=== PATIENT | female | born 1955 | race Two or more races ===

== ENCOUNTER 2021-10-24 15:44 | Inpatient (IN) | payer MEDICARE, MEDICAID ==
[~2021-10-24] VITALS: Ht 165.1 cm; Wt 56.2 kg
[2021-10-24] MEDS ORDERED: ONDANSETRON HCL 4 MG/2 ML VIAL IV ONE (16:00)
[2021-10-24] MEDS ORDERED: PANTOPRAZOLE 40 MG/10 ML VIAL INJ IV ONE (16:00)
[2021-10-24] MEDS ORDERED: SODIUM CHLORIDE 0.9% 500 ML IVB ONE (16:00)
[2021-10-24] MEDS ORDERED: MORPHINE SULFATE 4 MG/ML SYR/VIAL IV ONE (16:00)
[2021-10-24 16:51] LABS: Hemoglobin 10.8 g/dL (12.2-16.2)
[2021-10-24 16:54] LABS: Hematocrit 35.6 % (36.0-46.0); Mean Corpuscular Hgb Conc. 30.3 g/dL (32.0-36.0); Mean Corpuscular Volume 69.4 fL (80.0-100.0); Red Blood Cells 5.14 10^6/uL (4.0-5.20); White Blood Cell 12.8 10^3/uL (4.4-10.8)
[2021-10-24 16:58] LABS: Red Cell Distribution Width 25.3 % (11.8-14.3)
[2021-10-24 17:00] LABS: Basophils % (manual) 0 (0.0-2.0); Blast Cells 0; Eosinophils % (manual) 0 (0-7); Metamyelocytes % 0; Myelocytes % 0; Promyelocytes % 0; Reactive Lymphocytes 0
[2021-10-24 17:08] LABS: Albumin 2.8 g/dL (3.4-5.0); BUN/Creatinine Ratio 15.2; Calcium 9.1 mg/dL (8.5-10.1); Potassium 4.1 mmol/L (3.5-5.1)
[2021-10-24 17:11] LABS: Bilirubin, Total 0.6 mg/dL (0.2-1.0); Total Protein 7.5 g/dL (6.4-8.2)
[2021-10-24 17:47] LABS: Band Neutrophils % (manual) 15; Lymphocytes % (manual) 5 (10.0-50.0); Monocytes % (manual) 4 (0-12)
[2021-10-24] MEDS ORDERED: DEXTROSE (50%) 50ML SYRG IV PRN (20:45)
[2021-10-24] MEDS ORDERED: ACETAMINOPHEN 325 MG TAB PO PRN (20:45)
[2021-10-24] MEDS ORDERED: ALBUTEROL SULF 2.5 MG/0.5ML(0.5%) NEB SOLN NEB PRN (20:45)
[2021-10-24] MEDS ORDERED: NITROGLYCERIN 0.4 MG SL TAB SL PRN (20:45)
[2021-10-24] MEDS ORDERED: DOCUSATE SOD 100 MG CAP PO PRN (20:45)
[2021-10-24] MEDS ORDERED: MORPHINE SULFATE INJ 2 MG/ml SYRG IV PRN (20:45)
[2021-10-24] MEDS ORDERED: HYDROcodone-ACET 5/325MG TAB PO ONE (21:15)
[2021-10-24 21:21] LABS: Urine Bacteria FEW /hpf (None Seen); Urine Blood TRACE /uL (Negative); Urine Specific Gravity 1.018 (1.001-1.035); Urine WBC 19 /hpf (0 - 5)
[2021-10-24 21:32] VITALS: BP 144/90
[2021-10-24] MEDS: ACCU-CHEK COMFORT CURVE STRIP VI SCH (22:00)
[2021-10-24] MEDS: InsuLIN REG 1unit/0.01ml Soln (100units/ml) SC SCH (22:00)
[2021-10-24] MEDS: ATORVASTATIN 20 MG TAB PO SCH (22:45)
[2021-10-25 00:01] LABS: INR 1.13 (0.9-1.15); Partial Thromboplastin Time 36.7 sec (24.6-33.4)
[2021-10-25 04:54] LABS: Basophils # (auto) 0 10 ^3/uL (0-0.2); Eosinophils # (auto) 0 10 ^3/uL (0-0.8); Lymphocytes # (auto) 0.8 10 ^3/uL (0.4-5.4); Mean Corpuscular Hemoglobin 21.7 pg (28.0-32.0)
[2021-10-25 04:57] LABS: Basophils % (auto) 0.1 % (0.0-2.0); Eosinophils % (auto) 0.1 % (0.0-7.0); Hematocrit 29.3 % (36.0-46.0); Hemoglobin 9.1 g/dL (12.2-16.2); Lymphocytes % (auto) 6.9 % (10.0-50.0); Mean Corpuscular Hgb Conc. 31.1 g/dL (32.0-36.0); Mean Corpuscular Volume 69.8 fL (80.0-100.0); Monocytes # (auto) 0.7 10 ^3/uL (0-1.3); Monocytes % (auto) 5.7 % (0.0-12.0); Neutrophils % (auto) 87.2 % (37.0-80.0); Red Blood Cells 4.19 10^6/uL (4.0-5.20); White Blood Cell 11.5 10^3/uL (4.4-10.8)
[2021-10-25 05:16] LABS: Albumin 2.5 g/dL (3.4-5.0); BUN/Creatinine Ratio 15.6; Calcium 8.6 mg/dL (8.5-10.1); Potassium 4.2 mmol/L (3.5-5.1)
[2021-10-25 05:18] LABS: Bilirubin, Total 0.5 mg/dL (0.2-1.0); Total Protein 6.8 g/dL (6.4-8.2)
[2021-10-25 05:22] LABS: Red Cell Distribution Width 25.3 % (11.8-14.3)
[2021-10-25] MEDS ORDERED: KETOROLAC TROMETH 30 MG/ML 1ML VIAL IV ONE (05:45)
[2021-10-25] MEDS ORDERED: HYDROcodone-ACET 5/325MG TAB PO PRN ×2 (05:45→06:00)
[2021-10-25] MEDS ORDERED: MORPHINE SULFATE INJ 2 MG/ml SYRG IV PRN (05:45)
[2021-10-25] MEDS ORDERED: ACETAMINOPHEN 325 MG TAB PO PRN (06:00)
[2021-10-25] MEDS: InsuLIN REG 1unit/0.01ml Soln (100units/ml) SC SCH ×4 (06:36→21:42)
[2021-10-25] MEDS: ACCU-CHEK COMFORT CURVE STRIP VI SCH ×4 (06:36→21:30)
[2021-10-25 09:06] VITALS: BP 120/86
[2021-10-25] MEDS ORDERED: LIDOCAINE 2%HCL (LOCAL ANESTH.) INJ 10ml MDV ONE (09:56)
[2021-10-25] MEDS ORDERED: RIVAROXABAN 10 MG TAB PO SCH (10:00)
[2021-10-25] MEDS ORDERED: amLODIPine BESYLATE 5 MG TAB PO SCH (10:00)
[2021-10-25] MEDS: MORPHINE SULFATE INJ 2 MG/ml SYRG IV PRN ×2 (11:29→21:37)
[2021-10-25] MEDS ORDERED: cefTRIAXone 1GM/50ML D5W 50 ML IV ONE (11:45)
[2021-10-25] MEDS ORDERED: PANTOPRAZOLE 40 MG/10 ML VIAL INJ IV ONE (11:45)
[2021-10-25] MEDS ORDERED: ENOXAPARIN SOD 150 MG/1 ML SYRINGE SC ONE (11:45)
[2021-10-25 13:00] VITALS: BP 132/87
[2021-10-25] MEDS: ENOXAPARIN SOD 150 MG/1 ML SYRINGE SC SCH (15:12)
[2021-10-25 17:00] VITALS: BP 130/73
[2021-10-25 20:00] VITALS: BP 105/78
[2021-10-25] MEDS: ATORVASTATIN 20 MG TAB PO SCH (21:30)
[2021-10-25 22:00] VITALS: BP 105/78
[2021-10-26] MEDS: ENOXAPARIN SOD 150 MG/1 ML SYRINGE SC SCH (01:39)
[2021-10-26] MEDS: HYDROcodone-ACET 5/325MG TAB PO PRN ×3 (03:57→20:07)
[2021-10-26 05:00] VITALS: BP 95/74
[2021-10-26 05:41] LABS: Hematocrit 30.2 % (36.0-46.0); Mean Corpuscular Hemoglobin 20.6 pg (28.0-32.0); Mean Corpuscular Hgb Conc. 29.7 g/dL (32.0-36.0); Mean Corpuscular Volume 69.3 fL (80.0-100.0); Red Blood Cells 4.36 10^6/uL (4.0-5.20); White Blood Cell 13.5 10^3/uL (4.4-10.8)
[2021-10-26 05:46] LABS: Calcium 8.6 mg/dL (8.5-10.1); Potassium 3.9 mmol/L (3.5-5.1)
[2021-10-26 05:49] LABS: BUN/Creatinine Ratio 19.3
[2021-10-26 05:56] LABS: Red Cell Distribution Width 25.4 % (11.8-14.3)
[2021-10-26 05:57] LABS: Basophils % (manual) 0 (0.0-2.0); Blast Cells 0; Metamyelocytes % 0; Myelocytes % 0; Promyelocytes % 0; Reactive Lymphocytes 0
[2021-10-26] MEDS: InsuLIN REG 1unit/0.01ml Soln (100units/ml) SC SCH ×4 (06:29→21:33)
[2021-10-26] MEDS: ACCU-CHEK COMFORT CURVE STRIP VI SCH ×4 (06:31→21:33)
[2021-10-26] MEDS: MORPHINE SULFATE INJ 2 MG/ml SYRG IV PRN ×2 (06:32→17:07)
[2021-10-26 08:04] LABS: Band Neutrophils % (manual) 31; Eosinophils % (manual) 2 (0-7); Lymphocytes % (manual) 5 (10.0-50.0); Monocytes % (manual) 5 (0-12)
[2021-10-26] MEDS: cefTRIAXone 1GM/50ML D5W 50 ML IV SCH (08:56)
[2021-10-26 09:01] VITALS: BP 100/73
[2021-10-26] MEDS ORDERED: PANTOPRAZOLE 40 MG/10 ML VIAL INJ IV SCH (10:00)
[2021-10-26] MEDS ORDERED: AZITHROMYCIN 500MG/ 250ML 250 ML IV ONE (13:00)
[2021-10-26 13:11] VITALS: BP 113/86
[2021-10-26] MEDS: ONDANSETRON HCL 4 MG/2 ML VIAL IV PRN ×2 (17:07→17:33)
[2021-10-26 17:22] VITALS: BP 99/73
[2021-10-26] MEDS: ATORVASTATIN 20 MG TAB PO SCH (21:28)
[2021-10-26 22:00] VITALS: BP 116/68
[2021-10-27] MEDS: MORPHINE SULFATE INJ 2 MG/ml SYRG IV PRN ×4 (01:57→20:15)
[2021-10-27] MEDS: HYDROcodone-ACET 5/325MG TAB PO PRN ×3 (04:58→21:59)
[2021-10-27 05:00] VITALS: BP 117/84
[2021-10-27] MEDS: InsuLIN REG 1unit/0.01ml Soln (100units/ml) SC SCH ×2 (06:30→11:30)
[2021-10-27] MEDS: ACCU-CHEK COMFORT CURVE STRIP VI SCH ×2 (06:30→11:39)
[2021-10-27 06:35] LABS: Basophils # (auto) 0 10 ^3/uL (0-0.2); Eosinophils # (auto) 0 10 ^3/uL (0-0.8)
[2021-10-27 06:37] LABS: Basophils % (auto) 0.1 % (0.0-2.0); Hematocrit 30.8 % (36.0-46.0); Hemoglobin 9.3 g/dL (12.2-16.2); Lymphocytes # (auto) 0.4 10 ^3/uL (0.4-5.4); Lymphocytes % (auto) 2.4 % (10.0-50.0); Mean Corpuscular Hemoglobin 21.2 pg (28.0-32.0); Mean Corpuscular Hgb Conc. 30.4 g/dL (32.0-36.0); Mean Corpuscular Volume 69.8 fL (80.0-100.0); Monocytes # (auto) 1.3 10 ^3/uL (0-1.3); Monocytes % (auto) 8.8 % (0.0-12.0); Neutrophils # (auto) 13.2 10 ^3/uL (1.6-8.6); Neutrophils % (auto) 88.7 % (37.0-80.0); Nucleated Red Blood Cells % 0.1 %; Red Blood Cells 4.42 10^6/uL (4.0-5.20); White Blood Cell 14.9 10^3/uL (4.4-10.8)
[2021-10-27 09:00] VITALS: BP 102/77
[2021-10-27] MEDS ORDERED: ENOXAPARIN SOD 40 MG/0.4 ML SYRINGE SC SCH (10:00)
[2021-10-27] MEDS: cefTRIAXone 1GM/50ML D5W 50 ML IV SCH (10:13)
[2021-10-27] MEDS: AZITHROMYCIN 500MG/ 250ML 250 ML IV SCH (10:13)
[2021-10-27] MEDS: PANTOPRAZOLE 40 MG TAB PO SCH (10:14)
[2021-10-27] MEDS: ENOXAPARIN SOD 40 MG/0.4 ML SYRINGE SC SCH (10:14)
[2021-10-27] MEDS ORDERED: FUROSEMIDE 20 MG TAB PO ONE (12:00)
[2021-10-27] MEDS ORDERED: POTASSIUM CHL 20 Meq TABLET PO ONE (12:00)
[2021-10-27 12:45] VITALS: BP 110/66
[2021-10-27 13:55] LABS: Hematocrit 28.2 % (36.0-46.0); Hemoglobin 8.6 g/dL (12.2-16.2); Mean Corpuscular Hemoglobin 21.4 pg (28.0-32.0); Mean Corpuscular Hgb Conc. 30.6 g/dL (32.0-36.0); Red Blood Cells 4.03 10^6/uL (4.0-5.20); White Blood Cell 14.5 10^3/uL (4.4-10.8)
[2021-10-27 14:02] LABS: Basophils % (manual) 0 (0.0-2.0); Blast Cells 0; Eosinophils % (manual) 0 (0-7); Metamyelocytes % 0; Myelocytes % 0; Promyelocytes % 0; Reactive Lymphocytes 0; Red Cell Distribution Width 24.8 % (11.8-14.3)
[2021-10-27 14:19] LABS: Band Neutrophils % (manual) 2; Lymphocytes % (manual) 3 (10.0-50.0); Monocytes % (manual) 8 (0-12)
[2021-10-27 17:00] VITALS: BP 107/76
[2021-10-27] MEDS: ATORVASTATIN 20 MG TAB PO SCH (21:52)
[2021-10-27 22:00] VITALS: BP 130/89
[2021-10-28 05:00] VITALS: BP 133/95
[2021-10-28 06:46] LABS: BUN/Creatinine Ratio 17.6; Calcium 9.2 mg/dL (8.5-10.1)
[2021-10-28] MEDS: HYDROcodone-ACET 5/325MG TAB PO PRN (07:08)
[2021-10-28 09:00] VITALS: BP 119/85
[2021-10-28] MEDS: cefTRIAXone 1GM/50ML D5W 50 ML IV SCH (09:16)
[2021-10-28] MEDS: AZITHROMYCIN 500MG/ 250ML 250 ML IV SCH (10:57)
[2021-10-28] MEDS: PANTOPRAZOLE 40 MG TAB PO SCH (10:57)
[2021-10-28] MEDS: ENOXAPARIN SOD 40 MG/0.4 ML SYRINGE SC SCH (10:57)
[2021-10-28 13:00] VITALS: BP 122/84
[2021-10-28] MEDS ORDERED: MORPHINE SULF 15mg ER tab PO ONE (14:15)
[2021-10-28] MEDS ORDERED: MORPHINE SULF 30 mg ER tab PO ONE (14:45)
[2021-10-28 17:06] VITALS: BP 124/92
[2021-10-28] MEDS: ATORVASTATIN 20 MG TAB PO SCH (21:53)
[2021-10-28] MEDS: MORPHINE SULF 30 mg ER tab PO SCH (21:53)
[2021-10-28 22:00] VITALS: BP 107/77
[2021-10-28] MEDS ORDERED: MORPHINE SULF 15mg ER tab PO SCH (22:00)
[2021-10-29 05:00] VITALS: BP 127/95
[2021-10-29 09:00] VITALS: BP 116/79
[2021-10-29] MEDS: cefTRIAXone 1GM/50ML D5W 50 ML IV SCH (09:12)
[2021-10-29] MEDS: ENOXAPARIN SOD 40 MG/0.4 ML SYRINGE SC SCH (09:13)
[2021-10-29] MEDS: FERROUS SULFATE 325mg EC TAB PO SCH (09:13)
[2021-10-29] MEDS: PANTOPRAZOLE 40 MG TAB PO SCH (09:13)
[2021-10-29] MEDS: MORPHINE SULF 30 mg ER tab PO SCH (09:14)
[2021-10-29 09:49] LABS: % Iron Saturation 9.2 % (15-50)
[2021-10-29 13:00] VITALS: BP 116/83
[2021-10-29 16:42] VITALS: BP 96/71
[2021-10-29] MEDS ORDERED: Ensure HIGH Protein Chocolate 8oz Bottle PO SCH (18:00)
[2021-10-29] MEDS: ATORVASTATIN 20 MG TAB PO SCH (21:35)
[2021-10-29 22:00] VITALS: BP 122/83
[2021-10-29] MEDS ORDERED: MORPHINE SULF 15mg ER tab PO SCH (22:00)
[2021-10-30 05:00] VITALS: BP 114/74
[2021-10-30] MEDS: PANTOPRAZOLE 40 MG TAB PO SCH (08:40)
[2021-10-30] MEDS: cefTRIAXone 1GM/50ML D5W 50 ML IV SCH (08:40)
[2021-10-30] MEDS: FERROUS SULFATE 325mg EC TAB PO SCH (08:40)
[2021-10-30] MEDS: ENOXAPARIN SOD 40 MG/0.4 ML SYRINGE SC SCH (08:41)
[2021-10-30 09:00] VITALS: BP 129/86
[2021-10-30 13:00] VITALS: BP 92/74
[2021-10-30 17:00] VITALS: BP 99/63
[2021-10-30] MEDS: ATORVASTATIN 20 MG TAB PO SCH (21:42)
[2021-10-30 22:00] VITALS: BP 97/75
[2021-10-31 05:00] VITALS: BP 111/80
[2021-10-31 09:00] VITALS: BP 121/87
[2021-10-31] MEDS: cefTRIAXone 1GM/50ML D5W 50 ML IV SCH (09:19)
[2021-10-31] MEDS: ENOXAPARIN SOD 40 MG/0.4 ML SYRINGE SC SCH (10:11)
[2021-10-31] MEDS: PANTOPRAZOLE 40 MG TAB PO SCH (10:11)
[2021-10-31] MEDS: FERROUS SULFATE 325mg EC TAB PO SCH (10:11)
[2021-10-31 12:56] LABS: Hematocrit 26.6 % (36.0-46.0); Hemoglobin 8.2 g/dL (12.2-16.2); Mean Corpuscular Hgb Conc. 30.9 g/dL (32.0-36.0); Mean Corpuscular Volume 68.1 fL (80.0-100.0); Red Blood Cells 3.91 10^6/uL (4.0-5.20)
[2021-10-31 13:00] VITALS: BP 117/92
[2021-10-31 13:01] LABS: Red Cell Distribution Width 25.1 % (11.8-14.3)
[2021-10-31 13:02] LABS: Basophils % (manual) 0 (0.0-2.0); Blast Cells 0; Eosinophils % (manual) 0 (0-7); Metamyelocytes % 0; Monocytes % (manual) 0 (0-12); Myelocytes % 0; Promyelocytes % 0; Reactive Lymphocytes 0
[2021-10-31 13:04] LABS: Calcium 8.6 mg/dL (8.5-10.1); Potassium 4.8 mmol/L (3.5-5.1)
[2021-10-31 13:14] LABS: Lactic Acid w/Reflex 2.2 mmol/L (0.4-2.0)
[2021-10-31 13:49] LABS: Band Neutrophils % (manual) 30; Lymphocytes % (manual) 4 (10.0-50.0)
[2021-10-31] MEDS: SODIUM CHLORIDE 0.9% 1,000 ML IV SCH (15:15)
[2021-10-31 16:47] LABS: INR 1.11 (0.9-1.15)
[2021-10-31 21:32] VITALS: BP 97/62
[2021-10-31] MEDS: ATORVASTATIN 20 MG TAB PO SCH (21:48)
[2021-10-31] MEDS: PIPERACILLIN-TAZOB 3.375GM 100 ML IV SCH (21:48)
[2021-11-01] MEDS: SODIUM CHLORIDE 0.9% 1,000 ML IV SCH (04:35)
[2021-11-01 05:48] VITALS: BP 117/81
[2021-11-01] MEDS: PIPERACILLIN-TAZOB 3.375GM 100 ML IV SCH (06:55)
[2021-11-01 09:00] VITALS: BP 136/94
[2021-11-01 09:09] LABS: BUN/Creatinine Ratio 23.5; Calcium 9.7 mg/dL (8.5-10.1)
[2021-11-01 09:34] LABS: Potassium 4.2 mmol/L (3.5-5.1)
[2021-11-01] MEDS ORDERED: ENOXAPARIN SOD 30 MG/0.3 ML SYRINGE SC SCH (10:00)
[2021-11-01] MEDS: FERROUS SULFATE 325mg EC TAB PO SCH (10:00)
[2021-11-01] MEDS: PANTOPRAZOLE 40 MG TAB PO SCH (10:00)
[2021-11-01 13:00] VITALS: BP 130/86
[2021-11-01 13:06] VITALS: BP 110/66
[2021-11-01 17:00] VITALS: BP 128/96
== END 2021-11-01 17:20 | disposition hospice, home (50) | DRG 189 ==
LOC: ER 15:44 → EDBD 15:44 → TELE 20:40 → TELE-WESTW 10-25 08:37
PROVIDERS: ADMIT Nurse Practitioner; ATTEND Internal Medicine
PROC: 0W993ZZ Drainage of Right Pleural Cavity, Percutaneous Approach (ICD-10-PCS; principal; 2021-10-25)
DX: J96.00 Acute respiratory failure, unspecified whether with hypoxia or hypercapnia (principal); A41.9 Sepsis, unspecified organism; S52.515A Nondisplaced fracture of left radial styloid process, initial encounter for closed fracture; S52.615A Nondisplaced fracture of left ulna styloid process, initial encounter for closed fracture; J90 Pleural effusion, not elsewhere classified; N39.0 Urinary tract infection, site not specified; C56.9 Malignant neoplasm of unspecified ovary; C78.2 Secondary malignant neoplasm of pleura; E11.51 Type 2 diabetes mellitus with diabetic peripheral angiopathy without gangrene; I10 Essential (primary) hypertension; X58.XXXA Exposure to other specified factors, initial encounter; D50.9 Iron deficiency anemia, unspecified; K21.9 Gastro-esophageal reflux disease without esophagitis; F17.210 Nicotine dependence, cigarettes, uncomplicated; F12.10 Cannabis abuse, uncomplicated; E78.5 Hyperlipidemia, unspecified; E66.01 Morbid (severe) obesity due to excess calories; R91.8 Other nonspecific abnormal finding of lung field; Z20.822 Contact with and (suspected) exposure to COVID-19; Z92.21 Personal history of antineoplastic chemotherapy; Z91.041 Radiographic dye allergy status; Z85.43 Personal history of malignant neoplasm of ovary; Z83.3 Family history of diabetes mellitus; Z86.711 Personal history of pulmonary embolism; Z90.710 Acquired absence of both cervix and uterus; Z68.20 Body mass index [BMI] 20.0-20.9, adult; Y93.89 Activity, other specified; Y92.89 Other specified places as the place of occurrence of the external cause; Y99.8 Other external cause status
CPT/HCPCS: 36415; 71045; 71250; 73100; 74176; 76705; 76942; 78582; 80048; 80053; 81001; 82140; 82150; 82728; 82962; 83036; 83540; 83550; 83605; 83615; 83690; 83880; 83986; 84484; 85007; 85025; 85027; 85379; 85610; 85730; 87040; 87070; 87081; 87205; 89051; 93005; 93306; 96361; 96374; 96375; 97110; 97116; 97163; 97530; A4223; C9113; G0378; J0696; J1885; J2001; J2405; J2543